=== PATIENT | female | born 1985 | race Caucasian/White ===

== ENCOUNTER 2018-04-11 13:38 | Outpatient (CLI) | payer MEDICAID ==
[2018-04-11 15:30] LABS: RUPTURE FETAL MEMBRANES NEGATIVE (NEGATIVE)
[2018-04-11] MEDS: TERBUTALINE 1 MG/ML INJ SC (16:34)
== END 2018-04-11 21:17 | disposition home or self-care (01) ==
LOC: OBT 13:38 → L-D 13:39 → OBT 21:17
DX: O42.913 Preterm premature rupture of membranes, unspecified as to length of time between rupture and onset of labor, third trimester (principal); Z3A.35 35 weeks gestation of pregnancy
CPT/HCPCS: 76818; 84112

== ENCOUNTER 2018-04-29 20:24 | Inpatient (IN) | payer MEDICAID ==
[2018-04-29] MEDS ORDERED: METHYLERGONOVINE 0.2 MG INJ IM (21:00)
[2018-04-29] MEDS ORDERED: OXYTOCIN 30 UNITS/LR 500 ML IV ×2 (21:00)
[2018-04-29] MEDS ORDERED: LIDOCAINE 1% (MPF) 30 ML INJ INJ (21:00)
[2018-04-29] MEDS ORDERED: HYDROCODONE/APAP (5/325) TAB PO (21:00)
[2018-04-29] MEDS ORDERED: CARBOPROST 250 MCG INJ IM (21:00)
[2018-04-29] MEDS ORDERED: IBUPROFEN 600 MG TAB PO (21:00)
[2018-04-29] MEDS ORDERED: BUTORPHANOL 1 MG INJ IV (21:00)
[2018-04-29] MEDS ORDERED: BUTORPHANOL 2 MG INJ IV (21:00)
[2018-04-29] MEDS: LACTATED RINGER'S 1,000 ML IV ×2 (21:24→23:10)
[2018-04-29] MEDS: AMPICILLIN 2 GM/NS (PMX) 100 ML IV (21:37)
[2018-04-29] MEDS: MAGNESIUM SULFATE 4 GM/100 ML 100 ML IV (21:56)
[2018-04-29] MEDS ORDERED: CA GLUCONATE (GM) 10% 10ML INJ IV (22:00)
[2018-04-29] MEDS ORDERED: DEXTROSE 5%-LR 1,000 ML IV (22:00)
[2018-04-29 22:06] LABS: ADD MAN DIFF? NO
[2018-04-29 22:09] LABS: WHITE BLOOD COUNT 7.4 10^3/ul (4.8-10.8)
[2018-04-29 22:09] LABS: ADD UMIC YES; BASOPHILS % 0.1 % (0.0-2.0); EOSINOPHILS % 0.5 % (0.0-7.0); HEMATOCRIT 33.7 % (37.0-47.0); HEMOGLOBIN 11.8 g/dl (12.0-16.0); LYMPHOCYTES # 1.6 10^3/ul (0.8-2.9); LYMPHOCYTES % 21.6 % (15.0-51.0); MEAN CORPUSCULAR HEMOGLOBIN 30.5 pg (29.0-33.0); MEAN CORPUSCULAR VOLUME 87.1 fl (82.0-101.0); MEAN PLATELET VOLUME 11.6 fl (7.4-10.4); MONOCYTE # 0.5 10^3/ul (0.3-0.9); NEUTROPHIL # 5.3 10^3/ul (1.6-7.5); NEUTROPHILS % 71.4 % (39.0-77.0); PLATELET COUNT 145 10^3/UL (140-415); RED BLOOD COUNT 3.87 10^6/ul (4.20-5.40); RED CELL DISTRIBUTION WIDTH 13.6 % (11.5-14.5); UR ASCORBIC ACID NEGATIVE (NEGATIVE); UR BILIRUBIN (Dip) NEGATIVE (NEGATIVE); UR BLOOD (Dip) 2+ mg/dL (NEGATIVE); UR CLARITY CLEAR (CLEAR); UR COLOR COLORLESS (YELLOW); UR GLUCOSE (Dip) NEGATIVE (NEGATIVE); UR KETONES (Dip) NEGATIVE (NEGATIVE); UR LEUKOCYTE ESTERASE (Dip) NEGATIVE Leu/ul (NEGATIVE); UR NITRITE (Dip) NEGATIVE (NEGATIVE); UR RBC 1 /HPF (0-5); UR SPECIFIC GRAVITY (Dip) 1.003 (1.003-1.030); UR TOTAL PROTEIN (Dip) NEGATIVE (NEGATIVE); UR UROBILINOGEN (Dip) NEGATIVE (NEGATIVE); UR WBC 0 /HPF (0-5)
[2018-04-29] MEDS: MAGNESIUM SULFATE 20 GM/500 ML 500 ML IV (22:21)
[2018-04-29 22:25] LABS: BENZODIAZEPINES Negative (NEGATIVE)
[2018-04-29 22:27] LABS: AMPHETAMINE/METHAMPHETAMINE Negative (NEGATIVE)
[2018-04-29 22:29] LABS: BARBITURATES Negative (NEGATIVE); CANNABINOIDS Negative (NEGATIVE); COCAINE Negative (NEGATIVE); OPIATES Negative (NEGATIVE)
[2018-04-29 22:30] LABS: URIC ACID 5.1 mg/dl (3.1-7.9)
[2018-04-29 22:32] LABS: ALANINE AMINOTRANSFERASE 38 IU/L (13-69); ALBUMIN 3.3 g/dl (3.3-4.9); ALBUMIN/GLOBULIN RATIO 0.97; ALKALINE PHOSPHATASE 248 IU/L (42-121); ANION GAP 11 (8-16); ASPARTATE AMINO TRANSFERASE 28 IU/L (15-46); BILIRUBIN,INDIRECT 0.2 mg/dl (0-1.1); BILIRUBIN,TOTAL 0.2 mg/dl (0.2-1.3); BLOOD UREA NITROGEN 13 mg/dl (7-20); CALCIUM 8.5 mg/dl (8.4-10.2); CARBON DIOXIDE 23 mmol/L (21-31); CHLORIDE 112 mmol/L (97-110); CREATININE 0.64 mg/dl (0.44-1.00); GLUCOSE 106 mg/dl (70-220); POTASSIUM 4.1 mmol/L (3.5-5.1); SODIUM 142 mmol/L (135-144); TOTAL PROTEIN 6.7 g/dl (6.1-8.1)
[2018-04-29 22:35] LABS: INR 0.79; PARTIAL THROMBOPLASTIN TIME 26.3 Sec (25.0-35.0); PT RATIO 0.9
[2018-04-29] MEDS ORDERED: FENTAnyl 2MCG/ML-ROPIV 0.2% 100 ML (22:55)
[2018-04-29 23:01] LABS: HEPATITIS B SURFACE ANTIGEN NEGATIVE (NEGATIVE)
[2018-04-29] MEDS ORDERED: NALOXONE (0.4 MG/ML) INJ IV (23:30)
[2018-04-29] MEDS ORDERED: DIPHENHYDRAMINE 50 MG INJ IV (23:30)
[2018-04-29] MEDS ORDERED: ONDANSETRON 4 MG INJ IV (23:30)
[2018-04-29] MEDS: MISOPROSTOL 200 MCG TAB PR (23:45)
[2018-04-30] MEDS: OXYTOCIN 30 UNITS/LR 500 ML IV ×2 (00:01→00:08)
[2018-04-30] MEDS ORDERED: DEXTROSE 5%-LR 1,000 ML IV (00:41)
[2018-04-30] MEDS ORDERED: SENNA/DOCUSATE NA (8.6MG/50MG) TAB PO (01:00)
[2018-04-30] MEDS ORDERED: ZOLPIDEM 5 MG TAB PO (01:00)
[2018-04-30] MEDS ORDERED: AMPICILLIN 1 GM/NS (PMX) 50 ML IV (01:00)
[2018-04-30] MEDS ORDERED: ACETAMINOPHEN 325 MG TAB PO (01:00)
[2018-04-30] MEDS ORDERED: ONDANSETRON 4 MG INJ IV ×2 (01:00→20:30)
[2018-04-30] MEDS ORDERED: DIBUCAINE 1% 30 GM OINT PR (01:00)
[2018-04-30] MEDS ORDERED: OXYTOCIN 30 UNITS/LR 500 ML IV (01:00)
[2018-04-30] MEDS ORDERED: MISOPROSTOL 200 MCG TAB PR (01:00)
[2018-04-30] MEDS ORDERED: CARBOPROST 250 MCG INJ IM (01:00)
[2018-04-30] MEDS ORDERED: METHYLERGONOVINE 0.2 MG INJ IM (01:00)
[2018-04-30] MEDS ORDERED: DIPHENHYDRAMINE 50 MG INJ IV ×2 (01:00→20:30)
[2018-04-30] MEDS: FENTAnyl 2MCG/ML-ROPIV 0.2% 100 ML BAG EPI (01:12)
[2018-04-30] MEDS: WITCH HAZEL/GLYCERIN PAD PR (05:20)
[2018-04-30] MEDS: BENZOCAINE 20% 56 ML SPRAY TOP (05:20)
[2018-04-30] MEDS: LACTATED RINGER'S 1,000 ML IV* ×2 (05:20→08:41)
[2018-04-30] MEDS: LANOLIN 7 GM TUBE TOP (05:21)
[2018-04-30] MEDS: IBUPROFEN 600 MG TAB PO ×3 (06:00→18:00)
[2018-04-30 07:15] LABS: MAGNESIUM 6.1 mg/dl (1.7-2.5)
[2018-04-30] MEDS: MAGNESIUM SULFATE 20 GM/500 ML 500 ML IV (08:30)
[2018-04-30 12:44] LABS: MAGNESIUM 5.7 mg/dl (1.7-2.5)
[2018-04-30] MEDS ORDERED: ONDANSETRON 4 MG INJ (18:48)
[2018-04-30] MEDS ORDERED: PROPOFOL 20 ML (18:48)
[2018-04-30] MEDS ORDERED: KETOROLAC 30 MG INJ (18:48)
[2018-04-30] MEDS ORDERED: ROCURONIUM 50 MG INJ (18:48)
[2018-04-30] MEDS ORDERED: METOCLOPRAMIDE 10 MG INJ (18:48)
[2018-04-30] MEDS ORDERED: MIDAZOLAM 1 MG/ML 2 ML INJ (18:48)
[2018-04-30] MEDS ORDERED: CEFAZOLIN 1 GM INJ (19:04)
[2018-04-30] MEDS ORDERED: BUPIVACAINE 0.5% (SDV) 30 ML INJ (19:04)
[2018-04-30] MEDS ORDERED: ROPIVACAINE 0.5 % 30 ML VIAL (19:05)
[2018-04-30] MEDS ORDERED: SUGAMMADEX SODIUM 200 MG/2 ML VIAL IV (19:42)
[2018-04-30] MEDS ORDERED: HYDROCODONE/APAP (5/325) TAB PO ×2 (20:30)
[2018-04-30] MEDS ORDERED: morphine (1 MG/ML) 10ML SYRINGE IV ×2 (20:30)
[2018-04-30] MEDS: morphine (1 MG/ML) 10ML SYRINGE IV ×2 (20:30→20:45)
[2018-04-30] MEDS: LABETALOL HCL 20MG INJ IV (20:51)
[2018-04-30 20:55] LABS: RAPID PLASMA REAGIN NONREACTIVE (NR)
[2018-05-01] MEDS: IBUPROFEN 600 MG TAB PO ×3 (00:02→12:13)
[2018-05-01 08:39] LABS: ADD MAN DIFF? NO
[2018-05-01 08:45] LABS: BASOPHILS % 0.1 % (0.0-2.0); EOSINOPHILS % 0.1 % (0.0-7.0); HEMATOCRIT 31.8 % (37.0-47.0); HEMOGLOBIN 10.6 g/dl (12.0-16.0); LYMPHOCYTES # 1.1 10^3/ul (0.8-2.9); LYMPHOCYTES % 13.1 % (15.0-51.0); MEAN CORPUSCULAR HEMOGLOBIN 29.6 pg (29.0-33.0); MEAN CORPUSCULAR HGB CONC 33.3 g/dl (32.0-37.0); MEAN CORPUSCULAR VOLUME 88.8 fl (82.0-101.0); MEAN PLATELET VOLUME 11.1 fl (7.4-10.4); MONOCYTE # 0.4 10^3/ul (0.3-0.9); MONOCYTES % 5.2 % (0.0-11.0); NEUTROPHIL # 6.8 10^3/ul (1.6-7.5); NEUTROPHILS % 80.9 % (39.0-77.0); PLATELET COUNT 122 10^3/UL (140-415); RED BLOOD COUNT 3.58 10^6/ul (4.20-5.40); RED CELL DISTRIBUTION WIDTH 13.9 % (11.5-14.5)
[2018-05-01 08:45] LABS: WHITE BLOOD COUNT 8.4 10^3/ul (4.8-10.8)
[2018-05-01] MEDS: OXYCODONE/ASPIRIN (4.88/325) TAB PO ×2 (09:05→16:02)
[2018-05-01] MEDS: LACTATED RINGER'S 1,000 ML IV* ×4 (10:28)
[2018-05-01] MEDS: DIPHTH/TET/ACEL PERTUSS (ADULT) 0.5 ML VIAL IM* (13:09)
[2018-05-02] MEDS ORDERED: MEASLES,MUMPS,RUBELLA VACCINE INJ SC* (09:00)
[2018-05-02] MEDS ORDERED: DIPHTH/TET/ACEL PERTUSS (ADULT) 0.5 ML VIAL IM* (09:00)
[2018-05-03 12:16] LABS: RUBELLA ANTIBODY - IGG 2.54 index; RUBELLA ANTIBODY - IGM <20.00 AU/mL
== END 2018-05-01 17:25 | disposition home or self-care (01) | DRG 766 ==
LOC: PP1 04-30 01:30 → OBT 20:24 → L-D 20:26 → OBT 20:42 → L-D 20:42
PROC: 0UL70ZZ Occlusion of Bilateral Fallopian Tubes, Open Approach (ICD-10-PCS; 2018-04-30 14:47)
PROC: 10D00Z1 Extraction of Products of Conception, Low, Open Approach (ICD-10-PCS; principal; 2018-04-30 18:50)
PROC: 3E033VJ Introduction of Other Hormone into Peripheral Vein, Percutaneous Approach (ICD-10-PCS; 2018-04-30 18:50)
DX: O13.4 Gestational [pregnancy-induced] hypertension without significant proteinuria, complicating childbirth (principal); Z30.2 Encounter for sterilization; Z3A.37 37 weeks gestation of pregnancy; Z37.0 Single live birth
CPT/HCPCS: 62319; 80053; 80307; 81001; 82962; 83735; 84560; 85025; 85610; 85730; 86592; 86762; 86850; 86900; 86901; 87086; 87340; 88302; 90715

== ENCOUNTER 2019-02-09 15:56 | Emergency (ER) | payer MEDICAID | END 2019-02-09 20:25 | disposition home or self-care (01) | LOC: FTE 20:25 | DX: J06.9 Acute upper respiratory infection, unspecified (principal) | CPT/HCPCS: 87880; 99283 ==